=== PATIENT | male | born 2000 | race Caucasian/White ===

== ENCOUNTER 2023-06-06 12:41 | Emergency (ER) | payer MEDICAID, SELFPAY ==
[2023-06-06 13:15] VITALS: BP 113/71; PULSE 83; RESP 16; TEMP 36.4; O2SAT 99; BMI 24.7
--- NOTE | 2023-06-06 13:44 | ED_ITS ---
HPI - General Adult General Time Seen by Provider: 13:44 Date Seen: 06/06/23 Chief complaint: Headache/Migraine Stated complaint: Headache Time Seen by Provider: 06/06/23 13:25 Source: patient Mode of arrival: ambulatory Limitations: no limitations History of Present Illness HPI narrative: 22-year-old male with history of 3 week size of right-sided headache. He leny cribes being treated for H pylori that was diagnosed on a stool sample, he was on double antibiotics and continues on omeprazole. He has had no fever now thinks he may have had some fever at some point. He has had no sinus pressure. No nuchal rigidity. No thunderclap nature of the headache. He has not had headaches in the past. He reports that his right occipital parietal area. There is no skin rashes, no other complaints. No trauma reported recently. The headaches preceded his antibiotic use. Related Data Home Medications Medication Instructions Recorded Confirmed omeprazole 20 mg capsule,delayed 20 mg PO DAILY 06/06/23 06/06/23 release Previous Rx's Medication Instructions Recorded prednisone 20 mg tablet 20 mg PO BID #10 tabs 06/06/23 Allergies Allergy/AdvReac Type Severity Reaction Status Date / Time No Known Drug Allergies Allergy Verified 06/06/23 13:14 Review of Systems Status of ROS: Reports: 6 or more systems reviewed and unremarkable except as noted in History and below [facility] Social History Smoking Status: Never smoker Do you use any of these nicotine containing products: None Second hand tobacco smoke exposure: No How often do you have a drink containing alcohol: never AUDIT-C Alcohol total score: 0 Non-prescribed substance use: denies use service: No Exam Narrative: Exam Narrative: Objective: Vital signs unremarkable In general patient is no apparent distress No facial asymmetry pupils react to light extraocular moves intact Neck is supple Neurologic is nonfocal upper extremities he denies weakness or numbness in his arms or legs He is mildly photophobic, he also describes a area of in his right parietal occipital area that he reports is tender. Const: Vital Signs, click to edit/add: Vital Signs - 24 hr 06/06/23 13:15 Temperature 97.6 F Pulse Rate [Pulse Oximeter] 83 Respiratory Rate 16 Blood Pressure [Ri ght Upper Arm] 113/71 Pulse Oximetry 99 Oxygen Delivery Me thod Room Air Course Vital Signs Vital signs: Initial Vital Signs Temperature 97.6 F 06/06/23 13:15 Temperature Source Temporal Artery Scan 06/06/23 13:15 Pulse Rate 83 06/06/23 13:15 Pulse Rhythm Regular 06/06/23 13:15 Pulse Strength 3+ Normal 06/06/23 13:15 Respiratory Rate 16 06/06/23 13:15 Blood Pressure 113/71 06/06/23 13:15 Blood Pressure Mean 85 06/06/23 13:15 Blood Pressure Position Sitting 06/06/23 13:15 Pulse Oximetry 99 06/06/23 13:15 Oxygen Delivery Method Room Air 06/06/23 13:15 Vital Signs Temperature 97.6 F 06/06/23 13:15 Pulse Rate 83 06/06/23 13:15 Respiratory Rate 16 06/06/23 13:15 Blood Pressure 113/71 06/06/23 13:15 Pulse Oximetry 99 06/06/23 13:15 Oxygen Delivery Method Room Air 06/06/23 13:15 Temperature 97.6 F 06/06/23 13:15 Pulse Rate 83 06/06/23 13:15 Respiratory Rate 16 06/06/23 13:15 Blood Pressure 113/71 06/06/23 13:15 Pulse Oximetry 99 06/06/23 13:15 Oxygen Delivery Method Room Air 06/06/23 13:15 Medical Decision Making MDM Narrative Medical decision making narrative: 22-year-old male with prolonged right-sided headache. Certainly could be tension type headache or mixed migraine as tension-type headache. Does not sound like it is related to the medications he was on. At this point I would woodson ggest to him the following I would give him an IV 1 L normal saline, would use or migraine cocktail of Toradol Benadryl and Reglan. I think also she gets some advanced imaging and I recommend a CT scan of his head. He is hesitant to get radiation and he may wish to discuss this with his doctor and consider an MRI scan as an outpatient. I do not think he needs an emergent MRI. I strongly suggest him that he do a CT scan to rule out any bleeding or other abnormality at this time but he is contemplating this. Addendum 3:00 p.m.: Patient feels better after his IV fluid and medications. I think he would benefit from some prednisone at home to this will be faxed into his pharmacy over the next few days. We discussed at length doing imaging and I recommended he get a CT scan of his head and he declined this at this time, would rather talk to his doctor about this. I think he is able to make an informed decision. He will get a ride home today. He will follow up with regular doctor next couple of days, return to ED sooner problems or concerns. Lab Data Labs: Lab Results 06/06/23 Range/Units 14:16 WBC 3.83 L (4.50-11.00) K/uL RBC 5.71 (4.30-5.90) m/uL Hgb 16.1 (13.5-17.5) gm/dL Hct 47.1 (37.0-53.0) % MCV 83 (80-100) fL MCH 28 (26-34) pg MCHC 34 (32-36) gm/dL RDW Coeff of Jus 11.7 (11.5-15.5) % Plt Count 241 (140-440) K/uL Neut % (Auto) 62.9 (42.0-72.0) % Lymph % (Auto) 27.9 (20-44) % Sharkey % (Auto) 6.3 (0.0-11.0) % Eos % (Auto) 2.1 (0.0-7.0) % Baso % (Auto) 0.5 (0.0-3.0) % Neut # (Auto) 2.40 (1.7-7.0) K/uL Lymph # (Auto) 1.10 (0.90-2.90) K/uL Sharkey # (Auto) 0.20 (0.00-0.90) K/UL Eos # (Auto) 0.10 (0.00-0.50) K/uL Baso # (Auto) 0.00 (0.00-0.30) K/uL Abs Immat Gran (auto) 0.00 (0.00-0.30) K/uL Imm/Tot Granulo (auto) 0.3 % Sodium 137 (135-149) mmol/L Potassium 3.8 (3.6-5.1) mmol/L Chloride 102 (96-114) mmol/L Carbon Dioxide 29 (20-32) mmol/L Anion Gap 6 L (7-15) mEq/L BUN 12 (5-24) mg/dL Creatinine 0.8 (0.5-1.5) mg/dL Estimated Creat Clear 149.55 Estimated GFR 128 ml/min Glucose 93 (60-115) mg/dL Calcium 9.5 (8.4-10.6) mg/dL C-Reactive Protein < 0.5 L (0.5-1.0) mg/dL Discharge Plan Discharge Clinical Impression: Tension headache, Headache Patient Disposition: Home w/ Parent or Adult Condition: Improved Instructions: Acute Headache (ED) Additional Instructions: Follow-up with regular doctor next 2-3 days, would recommend you take Tylenol for continued pain management. May also use prednisone 20 mg twice daily x5 days. Would recommend you follow up with regular doctor as mentioned. Prednisone prescription sent to [facility] pharmacy in [place]. Activity Level: Light activity Discharge Diet: Regular Prescriptions: New prednisone 20 mg tablet 20 mg PO BID Qty: 10 0RF No Action omeprazole 20 mg capsule,delayed release(DR/EC) 20 mg PO DAILY Stand Alone Forms: [employer] Info Instructions
[2023-06-06] MEDS: METOCLOPRAMIDE HCL 10 MG in 0.9 % SODIUM CHLORIDE 100 ml 100 ML 306 MG IV (14:15)
[2023-06-06] MEDS: KETOROLAC 30 MG/ML inj IVP (14:16)
[2023-06-06] MEDS: 0.9 % SODIUM CHLORIDE 1000 ml 1,000 ML 1200 ML IV (14:16)
[2023-06-06] MEDS: diphenhydrAMINE 50 MG/ML inj 25 MG IVP (14:16)
[2023-06-06 14:34] LABS: Basophils Percent Auto 0.5 % (0.0-3.0); Eosinophils Percent Auto 2.1 % (0.0-7.0); Hematocrit 47.1 % (37.0-53.0); Hemoglobin* 16.1 gm/dL (13.5-17.5); Immature Granulocytes Pct Auto 0.3 %; Lymphocytes Percent Auto 27.9 % (20-44); Mean Corpuscular HGB Conc 34 gm/dL (32-36); Mean Corpuscular Hemoglobin 28 pg (26-34); Mean Corpuscular Volume 83 fL (80-100); Monocytes Percent Auto 6.3 % (0.0-11.0); Neutrophils Percent Auto 62.9 % (42.0-72.0); Platelet Count* 241 K/uL (140-440); RDW Coefficient of Variation % 11.7 % (11.5-15.5); Red Blood Count 5.71 m/uL (4.30-5.90); White Blood Count* 3.83 K/uL (4.50-11.00)
[2023-06-06 14:35] LABS: Slide Review Reflex No
[2023-06-06 14:49] LABS: Chloride* 102 mmol/L (96-114); Potassium* 3.8 mmol/L (3.6-5.1); Sodium* 137 mmol/L (135-149)
[2023-06-06 14:51] LABS: Creatinine* 0.8 mg/dL (0.5-1.5); Est. Creatinine Clearance* 149.55; Estimated Glomerular Filt Rate 128 ml/min
[2023-06-06 14:52] LABS: Anion Gap 6 mEq/L (7-15); Blood Urea Nitrogen* 12 mg/dL (5-24); Calcium* 9.5 mg/dL (8.4-10.6); Carbon Dioxide* 29 mmol/L (20-32)
[2023-06-06 15:01] LABS: C Reactive Protein* < 0.5 mg/dL (0.5-1.0)
[2023-06-06 15:08] LABS: Glucose* 93 mg/dL (60-115)
== END 2023-06-06 15:32 | disposition home or self-care (01) ==
LOC: ED 13:57
PROVIDERS: Emergency Provider Family Medicine
DX: G44.209 Tension-type headache, unspecified, not intractable (principal)
CPT/HCPCS: 36415; 80048; 85025; 86140; 96374; 96375; 99283; 99284; J1200; J1885; J2765; J7030

== ENCOUNTER 2023-06-09 12:09 | Emergency (ER) | payer MEDICAID, SELFPAY ==
[2023-06-09 12:13] VITALS: BP 119/71; PULSE 84; RESP 16; TEMP 35.9; O2SAT 99; BMI 24.7
--- NOTE | 2023-06-09 12:26 | CRLHL7_ITS ---
For Patients: As a result of the Century Cures Act, medical imaging exams and procedure reports are released immediately into your electronic medical record. You may view this report before your referring provider. If you have questions, please contact your health care provider. INDICATION: Headache TECHNIQUE: Non-contrast CT of the head is submitted. No comparisons. FINDINGS: The ventricles, sulci and gyri are of normal size, shape and contour. Midline structures are centrally located. No convincing evidence of intra- or extra-axial fluid collections. IMPRESSION: 1. No radiographic evidence of acute intracranial abnormalities. Dictated by Alan Martinez MD @ 06/09/2023 1:01:35 PM Please note that all CT scans at this facility use dose modulation, iterative reconstruction, and/or weight-based dosing when appropriate to reduce radiation dose to as low as reasonably achievable. Dictated by: Alan Martinez MD @ 06/09/2023 13:01:42 (Electronically Signed)
--- NOTE | 2023-06-09 12:28 | ED.GENADULT ---
HPI - General Adult General Time Seen by Provider: 12:28 Date Seen: 06/09/23 Chief complaint: Headache/Migraine Stated complaint: headache Time Seen by Provider: 06/09/23 12:11 Source: patient Mode of arrival: ambulatory Limitations: no limitations History of Present Illness HPI narrative: Patient is a 22-year-old male presenting emergency department for a headache. Headache has been going on for the past 3 weeks. He was in the emergency department 3 days ago and was treated assess the symptoms resolved briefly and then came back. He has never had issues with headaches before. She states felt like a band around his head but is now mostly located to his right temporal region. Denies in the head trauma. No history of cancer. Has had some associated nausea but no vomiting. Denies weakness, numbness, chest pain, shortness of breath, abdominal pain, diarrhea, constipation, vision changes. Related Data Home Medications Medication Instructions Recorded Confirmed omeprazole 20 mg capsule,delayed 20 mg PO DAILY 06/06/23 06/09/23 release Tylenol 06/09/23 Previous Rx's Medication Instructions Recorded prednisone 20 mg tablet 20 mg PO BID #10 tabs 06/06/23 Allergies Allergy/AdvReac Type Severity Reaction Status Date / Time No Known Drug Allergies Allergy Verified 06/09/23 12:16 Review of Systems Status of ROS: Reports: 10 or more systems reviewed and unremarkable except as noted in History and below [facility] Social History Smoking Status: Never smoker Do you use any of these nicotine containing products: None Second hand tobacco smoke exposure: No How often do you have a drink containing alcohol: never AUDIT-C Alcohol total score: 0 Non-prescribed substance use: denies use service: No Exam Narrative: Exam Narrative: Const: Well-nourished, Well-developed, in mild distress Eyes: PERRL, no conjunctival injection, and symmetrical lids ENMT: Atraumatic external nose and ears. Moist mucous membranes. Neck: Symmetric, trachea midline, No thyromegaly. CVS: RRR, No murmurs or gallops. Peripheral pulses 2+ and equal in all extremities RESP: Unlabored respiratory effort. Clear to auscultation bilaterally. GI: Nontender/Nondistended, No rebound or guarding. MSK:Extremities w/o deformity, Normal Active ROM Skin: Warm, Dry. No rashes or lesions. Neuro: Normal Muscle tone, Cranial nerves 2-12 grossly intact, normal [id number], normal [id number], normal gait, normal strength 5/5 upper lower extremities bilaterally, normal sensation upper and lower extremities bilaterally, normal rapid alternating movements. Psych: Awake, Alert, & Oriented x3. Appropriate mood and affect. Const: Vital Signs, click to edit/add: Vital Signs - 24 hr 06/09/23 12:13 Temperature 96.6 F L Pulse Rate [Left P ulse Oximeter] 84 Respiratory Rate 16 Blood Pressure [Ri ght Upper Arm] 119/71 Pulse Oximetry 99 Oxygen Delivery Me thod Room Air Course Vital Signs Vital signs: Initial Vital Signs Temperature 96.6 F L 06/09/23 12:13 Temperature Source Temporal Artery Scan 06/09/23 12:13 Pulse Rate 84 06/09/23 12:13 Respiratory Rate 16 06/09/23 12:13 Blood Pressure 119/71 06/09/23 12:13 Blood Pressure Mean 87 06/09/23 12:13 Blood Pressure Position Sitting 06/09/23 12:13 Pulse Oximetry 99 06/09/23 12:13 Oxygen Delivery Method Room Air 06/09/23 12:13 Vital Signs Temperature 96.6 F L 06/09/23 12:13 Pulse Rate 84 06/09/23 12:13 Respiratory Rate 16 06/09/23 12:13 Blood Pressure 119/71 06/09/23 12:13 Pulse Oximetry 99 06/09/23 12:13 Oxygen Delivery Method Room Air 06/09/23 12:13 Temperature 96.6 F L 06/09/23 12:13 Pulse Rate 84 06/09/23 12:13 Respiratory Rate 16 06/09/23 12:13 Blood Pressure 119/71 06/09/23 12:13 Pulse Oximetry 99 06/09/23 12:13 Oxygen Delivery Method Room Air 06/09/23 12:13 Medical Decision Making MDM Narrative Medical decision making narrative: Patient is 20-year-old male presenting for headache. For past 3 weeks he has been occurring. He was here 3 days ago and was given a migraine cocktail but refused a head CT. This is the symptoms came back in he has not been able to get of the splenic care provider yet. Do this we spoke to above the head CT and he is now agreeable to it. I also ordered a migraine cocktail again that includes Toradol, Reglan, IV fluids, Benadryl. Patient refused the medication and just wants to the results of the head CT. Sounds like he is having a migraine but there is no clear cause of what is causing that at this time. CT results returned showing no acute intracranial causes. At this point he still does not want the medications intake we has a home has been home. I informed the follow-up with primary care provider and he is agreeable to this plan. Imaging Data CT scan - head: Radiologist's impression: INDICATION: Headache TECHNIQUE: Non-contrast CT of the head is submitted. No comparisons. FINDINGS: The ventricles, sulci and gyri are of normal size, shape and contour. Midline structures are centrally located. No convincing evidence of intra- or extra-axial fluid collections. IMPRESSION: 1. No radiographic evidence of acute intracranial abnormalities. Dictated by Alan Martinez MD @ 06/09/2023 1:01:35 PM Please note that all CT scans at this facility use dose modulation, iterative reconstruction, and/or weight-based dosing when appropriate to reduce radiation dose to as low as reasonably achievable. Dictated by: Alan Martinez MD @ 06/09/2023 13:01:42 Discharge Plan Discharge Clinical Impression: Headache Qualifiers: Headache type: unspecified Headache chronicity pattern: acute headache Intractability: not intractable Qualified Code(s): R51.9 - Headache, unspecified Patient Disposition: Home, Self-Care Condition: Stable Instructions: Acute Headache (DC) Additional Instructions: Follow-up with the primary care provider. Take Tylenol and ibuprofen for pain. Return for new or worsening symptoms. CT scan of the head showed no acute intracranial issues Prescriptions: No Action Tylenol omeprazole 20 mg capsule,delayed release(DR/EC) 20 mg PO DAILY prednisone 20 mg tablet 20 mg PO BID Qty: 10 0RF Follow Up/Referrals: Provider,Not a Local [Primary Care Provider] - Stand Alone Forms: [employer] Info Instructions
--- NOTE | 2023-06-09 12:51 | ED.NURSE ---
Pt declines iv and iv medications at this time, prefers to wait for CT result. Pt mom at BS. Dr Lagunas updated.
== END 2023-06-09 13:47 | disposition home or self-care (01) ==
PROVIDERS: Emergency Provider Student in an Organized Health Care Education/Training Program
DX: R51.9 Headache, unspecified (principal)
CPT/HCPCS: 70450; 96374; 96375; 99283; 99284